=== PATIENT | male | born 1955 | race African-American/Black ===

== ENCOUNTER 2017-11-09 02:20 | Emergency (ER) | payer MEDICAID ==
[~2017-11-09] VITALS: Ht 177.8 cm; Wt 72.0 kg
[~2017-11-09 02:20] MED LIST: GABA-529 PO
[2017-11-09 02:22] VITALS: BP 137/80
[2017-11-09 03:26] LABS: BASOPHILS % 0.5 % (0.0-2.0); EOSINOPHILS % 0.6 % (0.0-5.0); HEMATOCRIT. 38.4 % (42.0-52.0); HEMOGLOBIN. 12.9 g/dL (14.0-18.0); LYMPHOCYTES % 21.4 % (20.0-50.0); MEAN CORPUSCULAR VOLUME 83.4 fL (80.0-94.0); MEAN PLATELET VOLUME 8.6 fl (7.4-10.4); MONOCYTES % 8.6 % (2.0-8.0); NEUTROPHILS % 68.9 % (40.0-76.0); PLATELET 191 x1000/uL (130-400); RED BLOOD CELL COUNT 4.61 mill/uL (4.7-6.1); RED CELL DISTRIBUTION WIDTH 15.2 % (11.6-14.6)
[2017-11-09 03:31] LABS: CHLORIDE 106 mEq/L (98-107)
== END 2017-11-09 05:45 | disposition home or self-care (01) ==
LOC: ER 02:20
DX: R06.00 Dyspnea, unspecified (principal); G47.00 Insomnia, unspecified; F41.9 Anxiety disorder, unspecified; R03.0 Elevated blood-pressure reading, without diagnosis of hypertension; F12.90 Cannabis use, unspecified, uncomplicated
CPT/HCPCS: 36415; 71045; 80053; 83880; 84484; 85025; 93005; 99285